=== PATIENT | male | born 2000 | race Caucasian/White ===

== ENCOUNTER 2021-12-14 08:07 | Emergency (ER) | payer OTHER, BC ==
[2021-12-14] MEDS ORDERED: Iopamidol 612 MG/ML 100 ML Bottle IVPUSH ONE (08:36)
[2021-12-14] MEDS ORDERED: fentaNYL 100 MCG/2 ML SDV IVPUSH ONE (08:38)
[2021-12-14] MEDS ORDERED: fentaNYL 100 MCG/2 ML SDV IV ONE (08:55)
[2021-12-14 09:03] LABS: ANION GAP 15.3 mEq/L (7-13); CHLORIDE,CL 103 mmol/L (98-107); SODIUM,NA 140 mmol/L (136-145)
[2021-12-14 09:41] LABS: AMPHETAMINES,URINE NEGATIVE (NEGATIVE); BARBITURATES,URINE NEGATIVE (NEGATIVE); BENZODIAZEPINE,URINE NEGATIVE (NEGATIVE); MDMA (ECSTASY), URINE NEGATIVE (NEGATIVE); METHADONE,URINE NEGATIVE (NEGATIVE); METHAMPHETAMINES,URINE NEGATIVE (NEGATIVE); OPIATES,URINE NEGATIVE (NEGATIVE); OXYCODONE,URINE NEGATIVE (NEGATIVE); PHENCYCLIDINE,URINE NEGATIVE (NEGATIVE); TCA,URINE NEGATIVE (NEGATIVE)
[2021-12-14] MEDS ORDERED: Ibuprofen 800 MG Tab PO ONE ×2 (10:03→10:08)
== END 2021-12-14 10:20 | disposition home or self-care (01) ==
LOC: DL.ED 08:07
DX: S22.080A Wedge compression fracture of T11-T12 vertebra, initial encounter for closed fracture (principal); S32.010A Wedge compression fracture of first lumbar vertebra, initial encounter for closed fracture; V49.10XA Passenger injured in collision with unspecified motor vehicles in nontraffic accident, initial encounter; Y92.410 Unspecified street and highway as the place of occurrence of the external cause
CPT/HCPCS: 36415; 70450; 71260; 72125; 72131; 74177; 80053; 80305; 80307; 81003; 85025; 99285; A9270; J3010; Q9967